=== PATIENT | male | born 1990 | race Caucasian/White ===

== ENCOUNTER 2025-01-15 08:43 | Outpatient (AMB) | payer OTHER, SELFPAY ==
[2025-01-15 08:51] VITALS: BP 142/92; PULSE 109; O2SAT 97; BMI 37.9
--- NOTE | 2025-01-15 08:51 | HO.NEPHOV_ITS ---
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 Referred for ABPM He has been monitoring his blood pressure for approximately two years, noticing elevated values during medical visits but slightly lower readings at home. There is a notable family history of hypertension in his parents, who are on treatment. The patient's stress-inducing occupation may influence his blood pressure levels. He also presents with mild hyperlipidemia. The patient's lifestyle includes minimal fast food and salt intake and regular walks. [facility] Family History Mother Diabetes mellitus type 2, controlled Father Diabetes mellitus type 2, controlled Maternal Grandfather Cardiovascular disease Review of Systems Const Denies fever(s) and Denies weight loss Card Denies chest pain Resp Denies cough and Denies hemoptysis GI Denies abdominal pain, Denies diarrhea and Denies nausea Musc Denies back pain Neuro Denies focal weakness Physical Exam Vital Signs: Last Vital Signs Pulse 109 H 01/15/25 08:51 BP 142/92 H 01/15/25 08:51 Pulse Ox 97 01/15/25 08:51 Oxygen Delivery Method Room Air 01/15/25 08:51 BMI result Body Mass Index 37.9 Const General: comfortable Nutritional Appearance: well nourished Orientation/consciousness: patient oriented x3 HEENT Head: No normal to inspection Mouth: moist mucous membranes Neck Neck: Yes supple and Yes no JVD Resp Auscultation: clear to auscultation bilaterally and no rales Cardio Jugular venous distension: no JVD Palpation: no palpable S3 and no palpable S4 Heart sounds: no rubs GI Palpation (GI): Soft to palpation and nontender Percussion: No Fluid wave present General: Yes no CVA tenderness Back/Spine/Pelvis Back: no CVA tenderness Skin General skin exam: no rashes or lesions noted Neuro General: patient oriented x3 Extrem General: Yes no pedal edema and No clubbing Results Reviewed Nephrology Results: No Data to Display Assessment & Plan Assessment & Plan (1) Elevated blood pressure reading: Code(s): R03.0 - Elevated blood-pressure reading, without diagnosis of hypertension Category: Medical Plan Young man with borderline elevation in BP New onset HTN vs white coat effect Obesity might be playing a role Plan Obtain 24 hr ABPM Discussed low salt diet Needs to loose weight Encouraged to increase physical activity RTC after ABPM Orders: Orders AMB 24 HR B/P Monitor PLACEMENT 3 Weeks I10 - Essential (primary) hypertension Coding Level of Care Code New Pt Level 4 (30671) Diagnoses Elevated blood pressure reading R03.0
== END 2025-01-15 09:12 | disposition home or self-care (01) ==
LOC: HO.HKAS 08:44
PROVIDERS: PCP Family Medicine; Referring Provider Family Medicine; Visit Provider Internal Medicine Hypertension Specialist
DX: R03.0 Elevated blood-pressure reading, without diagnosis of hypertension (principal)
CPT/HCPCS: 99204

== ENCOUNTER → 2025-01-15 08:43 | Outpatient (BNVA) | payer OTHER, SELFPAY | PROVIDERS: PCP Family Medicine; Referring Provider Family Medicine; Visit Provider Internal Medicine Hypertension Specialist ==